=== PATIENT | male | born 1960 | race Caucasian/White ===

== ENCOUNTER 2019-03-01 06:57 | Day surgery (SDC) | payer OTHER ==
[~2019-03-01 06:57] MED LIST: ACETAMINOPHEN 1,000 MG/100 ML BTL IVPB ONE; CEFAZOLIN 2 Gram 2 GM/50 ML BAG IVPB ONE
[2019-03-01] MEDS ORDERED: MIDAZOLAM HCL 2MG/2ML VIAL IV ONE (06:58)
[2019-03-01] MEDS ORDERED: ONDANSETRON HCL IV 4 MG/2 ML VIAL IVP ONE (06:58)
[2019-03-01] MEDS ORDERED: FENTANYL PF 100MCG/2ML VIAL IV ONE (06:58)
[2019-03-01] MEDS ORDERED: KETOROLAC 30 MG/ML VIAL IVP ONE (06:58)
[2019-03-01] MEDS ORDERED: DEXAMETHASONE 4 MG/ML 1ML VIAL IVP ONE ×2 (06:58)
[2019-03-01] MEDS ORDERED: PROPOFOL 10 MG/ML VIAL IV ONE (06:58)
[2019-03-01] MEDS ORDERED: LIDOCAINE 2% MDV (20MG/ML) 20ML VIAL IV ONE (06:58)
[2019-03-01] MEDS ORDERED: ROPIVACAINE HCL (NAROPIN) /PF 5MG/ML 20ML VIAL IV ONE (06:58)
[2019-03-01] MEDS ORDERED: RINGERS SOLUTION,LACTATED 1,000 ML IV ONE (07:30)
[2019-03-01 08:31] LABS: BLOOD UREA NITROGEN 14 mg/dL (6-20); CREATININE 0.8 mg/dL (0.7-1.2); EST GLOMERULAR FILTRATION RATE > 60 mL/min
[2019-03-01 08:34] LABS: GLUCOSE,RANDOM 81 mg/dL (74-109)
[2019-03-01] MEDS ORDERED: BUPIVACAINE 0.25% W/EPI MPF 30ML VIAL SQ ONE (08:57)
--- NOTE | 2019-03-02 09:31 | Operative Note ---
DATE OF SURGERY: 03/01/2019 SURGEON: Sushant Jean-Baptiste DO PREOPERATIVE DIAGNOSIS: Reducible right inguinal hernia. POSTOPERATIVE DIAGNOSIS: Indirect right inguinal hernia. OPERATION: Open right inguinal herniorrhaphy with mesh. PROCEDURE: The patient is a 58-year-old male which was brought to the operating room and placed in a supine position. General anesthesia was administered per the department of anesthesia. The patient's right inguinal region was prepped and draped in a usual fashion. He had also undergone a prior preoperative inguinal block by the department of anesthesia. At this time, adequate timeout was performed. He did receive preoperative antibiotic as well as DVT prophylaxis. At this time, the oblique region was anesthetized with a total of 5 mL of 0.25% Sensorcaine with epinephrine. A 4 cm oblique incision was made. This was carried down through the subcutaneous tissues through the Park layer to the aponeurosis of the external oblique. This was cleaned off. These fibers were found to be very distended and attenuated. At this time, a jannet was made with a scalpel blade. This was enlarged in the direction of its fibers through the superficial inguinal ring with Metzenbaum scissors. Care was taken not to injure the underlying ilioinguinal nerve or spermatic cord. Cremasteric fibers were taken down. The patient had indirect hernia sac as well as cord lipoma. High ligations of each were done. At this time, the floor was inspected and noted to be free of any direct herniation. A right-sided ProGrip mesh was obtained. This was placed in the floor of the inguinal canal with excellent overlap of the pubic tubercle. Sutures went at the level of pubic tubercle, internal oblique aponeurosis, and second portion of the inguinal ligament. The lateral triangle was protected with the lateral aspect of the mesh. At this time, the aponeurosis of the external oblique was closed over the cord with 2-0 Vicryl, Park layer was closed with 3-0 Vicryl, and skin was closed with 4-0 Vicryl. The patient was taken to the recovery room in stable condition. FINDINGS ON SURGERY: Right inguinal hernia, indirect, repaired as above. CC: DO KYLE Tejada
== END 2019-03-01 10:00 | disposition home or self-care (01) ==
LOC: SUR 06:57
PROVIDERS: ATTEND Surgery
DX: K40.90 Unilateral inguinal hernia, without obstruction or gangrene, not specified as recurrent (principal)
CPT/HCPCS: 49505; 00830; 64425; 80048; J1885; J2405; J3010; J0690; J2795; 76942; J7120

== ENCOUNTER 2019-07-16 07:28 | Day surgery (SDC) | payer OTHER ==
[2019-07-16] MEDS ORDERED: PROPOFOL 10 MG/ML VIAL IV ONE (07:29)
[2019-07-16] MEDS ORDERED: LIDOCAINE 2% MDV (20MG/ML) 20ML VIAL IV ONE (07:29)
--- NOTE | 2019-07-20 06:02 | Operative Note ---
DATE OF SURGERY: 07/16/2019 REQUESTING PHYSICIAN: Mohsen Lentz D.O. SURGEON: Anselmo Murillo M.D. OPERATION: COLONOSCOPY. INDICATIONS: This is a 58-year-old male with a history of colon polyps who presented for surveillance colonoscopy. POSTOPERATIVE DIAGNOSES: 1. Left-sided colonic diverticulosis. 2. A 3 mm sessile polyp in the sigmoid colon that was removed by cold biopsy forceps. 3. Otherwise normal colon. ANESTHESIA: Sedation is per Anesthesia. Pulse oximetry was monitored throughout the procedure to maintain O2 saturation of 90% or greater. Supplemental oxygen was administered via nasal cannula. Cardiac and vital signs were monitored throughout the duration of the procedure, and they were stable. The procedure of colonoscopy, risks and alternatives of the procedure, including the risk of bleeding and perforation, among others, were explained to the patient who voiced understanding and agreed to have the procedure done. Physical examination was performed, and the patient was found stable for sedation. PROCEDURE: The patient was placed in the left lateral position. Sedation was initiated. A digital rectal exam was performed and showed some external hemorrhoids with no palpable rectal masses. An Olympus PCF-180AL colonoscope was then inserted into the rectum under direct visualization. It was advanced to the cecum without difficulty. The ileocecal valve and appendiceal orifice were identified and photographed. The colonic mucosa was carefully examined upon introduction of the colonoscope. There were scattered diverticula in the sigmoid and descending colon. There were no other lesions noted. The colonoscope was then withdrawn while carefully examining the colonic mucosal surfaces. No other lesions were noted. In the rectum, retroflexion was performed and grade 1 internal hemorrhoids were noted. In the sigmoid colon, there was a 3 mm sessile polyp that was removed by cold biopsy forceps. The colonoscope was then withdrawn into the rectum and retroflexion was performed. There were no other lesions noted. The colonoscope was then straightened and withdrawn and the procedure was terminated. The patient tolerated the procedure well without any immediate concerns. He remained with stable vital signs and was transferred to the recovery room. RECOMMENDATIONS: 1. The patient should be on a high-fiber diet. 2. The patient is to have a repeat colonoscopy for surveillance in 5 years. Thank you for allowing me to participate in the care of your patient. KYLE
== END 2019-07-16 09:12 | disposition home or self-care (01) ==
LOC: HOP 07:28
PROVIDERS: ATTEND Internal Medicine Gastroenterology
DX: Z12.11 Encounter for screening for malignant neoplasm of colon (principal); Z86.010 Personal history of colon polyps; K63.5 Polyp of colon; K57.30 Diverticulosis of large intestine without perforation or abscess without bleeding